=== PATIENT | female | born 1970 | race Hispanic/Latino ===

== ENCOUNTER 2016-11-08 08:06 | Emergency (ER) | payer MEDICAID ==
[2016-11-08 09:20] LABS: Basophils % (Auto) 0.3 % (0.0-1.8); Hematocrit 33.5 % (30.3-42.9); Hemoglobin 10.6 gm/dl (10.1-14.3); Mean Corpuscular HGB Conc 32 % (30-34); Mean Corpuscular Hemoglobin 26 pg (28-32); Mean Corpuscular Volume 83 fl (79-97); Platelet Count 435 K/mm3 (140-440); Red Blood Count 4.04 M/mm3 (3.65-5.03); Red Cell Distribution Width 19.6 % (13.2-15.2); White Blood Count 11.2 K/mm3 (4.5-11.0)
[2016-11-08 09:33] LABS: Anion Gap 18 mmol/L; Blood Urea Nitrogen 9 mg/dL (7-17); Calcium 9.4 mg/dL (8.4-10.2); Carbon Dioxide 27 mmol/L (22-30); Chloride 97.6 mmol/L (98-107); Glucose 122 mg/dL (65-100); Potassium 4.5 mmol/L (3.6-5.0); Sodium 138 mmol/L (137-145)
[2016-11-08] MEDS ORDERED: ZOFRAN IV ONE (11:07)
[2016-11-08] MEDS ORDERED: DILAUDID IV ONE (11:07)
[2016-11-08] MEDS ORDERED: NACL 0.9% 1000 ML 1,000 ML IV ONE (11:08)
--- NOTE | 2016-11-08 11:17 | Emergency Department Report ---
HPI - General Chief Complaint: Rectal Pain Time Seen by Provider: 11/08/16 11:07 - HPI HPI: 46-year-old female, she obtains most of her medical care at [facility] but present disorder [facility] this morning for severe rectal pain. She does a history of rectal cancer, patient does not remember who is her oncologist, she does not remember who did her rectal surgeries. She states she goes to primary care for Percocet but hasn't had time to go this past month. She describes her pain as sharp, 9 out of 10, without radiation without discharge from her rectal mass. ED Past Medical Hx - Past Medical History Previous Medical History?: Yes Hx of Cancer: Yes (Anal) - Social History Smoking Status: Current Every Day Smoker Substance Use Type: None ED Review of Systems ROS: Stated complaint: ABD PAIN/N/V Other details as noted in HPI Gastrointestinal: other (rectal pain) Physical Exam - Physical Exam Vital Signs: Vital Signs 11/08/16 08:36 Temperature 97.6 F Pulse Rate 73 Respiratory 18 Rate Blood Pressure 98/61 Blood Pressure 98/61 [Right] O2 Sat by Pulse 100 Oximetry Physical Exam: Physical Exam: - General Limitations: No Limitations General appearance: In distress - Head Head exam: Present: atraumatic, normocephalic - Eye Eye exam: Present: normal appearance - ENT ENT exam: Present: mucous membranes moist - Neck Neck exam: Present: normal inspection - Respiratory Respiratory exam: Present: normal lung sounds bilaterally. Absent: respiratory distress - Cardiovascular Cardiovascular Exam: Present: normal rhythm, tachycardia. Absent: systolic murmur, diastolic murmur, rubs, gallop - GI/Abdominal GI/Abdominal exam: Present: soft, normal bowel sounds Rectal exam done with nurse in room as veterinary assistant, showed extensive anal papilloma without drainage, not bleeding. - Extremities Exam Extremities exam: Present: normal inspection - Back Exam Back exam: Present: normal inspection - Neurological Exam Neurological exam: Present: alert, oriented X3, - Skin Skin exam: Present: warm, dry, intact, normal color. Absent: rash ED Course Vital Signs 11/08/16 08:36 Temperature 97.6 F Pulse Rate 73 Respiratory 18 Rate Blood Pressure 98/61 Blood Pressure 98/61 [Right] O2 Sat by Pulse 100 Oximetry - Reevaluation(s) Reevaluation #1: 09/02/17 12:51 Patient was given Dilaudid 1 mg IV, with Zofran 4 mg IV in ER for pain control. I believe that this is appropriate and adequate for her symptoms. Patient requesting Percocet prescription, due to patient's chronic pain status, we'll defer to primary care/oncologist for chronic pain control. ED Medical Decision Making - Lab Data Result diagrams: 11/08/16 09:04 11/08/16 09:04 Critical care attestation.: If time is entered above; I have spent that time in minutes in the direct care of this critically ill patient, excluding procedure time. ED Disposition Clinical Impression: Rectal pain, chronic Disposition: DC-01 TO HOME OR SELFCARE Is pt being admited?: No Does the pt Need Aspirin: No Condition: Stable Referrals: PRIMARY CARE, [Primary Care Provider] - 3-5 Days
[2016-11-08 12:38] VITALS: BP 118/64
== END 2016-11-08 13:47 | disposition home or self-care (01) ==
LOC: ED 08:06
DX: K62.89 Other specified diseases of anus and rectum (principal); C21.0 Malignant neoplasm of anus, unspecified; F17.200 Nicotine dependence, unspecified, uncomplicated; Z88.8 Allergy status to other drugs, medicaments and biological substances
CPT/HCPCS: 36415; 80048; 85025; 96361; 96374; 96375; 99284; J1170; J2405; J7030

== ENCOUNTER 2016-11-08 15:51 | Emergency (ER) | payer MEDICAID ==
[2016-11-08] MEDS ORDERED: ATIVAN IV ONE (22:38)
[2016-11-08] MEDS ORDERED: VITAMIN B-1 100 MG, FOLVITE 1 MG, INFUVITE 10 ML, MAGNESIUM SULFATE 2 GM in NACL 0.9% 1... IV ONE (22:38)
[2016-11-08] MEDS ORDERED: ZOFRAN IV ONE (22:38)
[2016-11-08] MEDS ORDERED: LOMOTIL PO ONE (22:38)
--- NOTE | 2016-11-09 00:06 | Emergency Department Report ---
HPI - General Chief Complaint: Medical Clearance Time Seen by Provider: 11/08/16 22:29 - [facility] HPI: [facility] The patient is a 46-year-old female presenting with chief complaint of benzodiazepine and methadone withdrawal. Patient was just seen in the emergency department seeking pain medication for her anal cancer. The patient was discharged after receiving pain medication in the ED and advised to follow- up with her primary physician for further pain management. The patient immediately turned back around and came back to the ED stating that she wishes to receive detox from methadone and benzodiazepines. Patient states she takes as well as Xanax which can and has not had any past 2 days. Patient states she has not had methadone since yesterday. The patient says she feels hot and cold , sweaty with tremors and nauseous. Patient missed diarrhea. Location: [see above] Duration: [see above] Quality: [see above] Severity: Moderate Modifying factors: [see above] Context: [see above] Mode of transportation: [not driving] ED Past Medical Hx - Past Medical History Additional medical history: anal cancer - Surgical History Past Surgical History?: No - Family History Family history: no significant - Social History Smoking Status: Current Every Day Smoker Substance Use Type: Alcohol (approximately 1 pint of alcohol daily) - Medications Home Medications: Home Medications Medication Instructions Recorded Confirmed Last Taken Type FLUoxetine [PROzac] 20 mg PO BID 11/08/16 11/08/16 Unknown History Gabapentin [Neurontin] 800 mg PO TID 11/08/16 11/08/16 Unknown History traMADol [Ultram] 50 mg PO Q6HR PRN #7 tablet 11/08/16 11/08/16 Unknown Rx ED Review of Systems ROS: Stated complaint: MEDICAL CLEARANCE Other details as noted in HPI Comment: All other systems reviewed and negative Constitutional: chills, diaphoresis. denies: fever Eyes: denies: eye pain, eye discharge, vision change ENT: denies: ear pain, throat pain Respiratory: denies: cough, shortness of breath, wheezing Cardiovascular: denies: chest pain, palpitations Endocrine: no symptoms reported Gastrointestinal: nausea, vomiting, diarrhea Genitourinary: denies: urgency, dysuria, discharge Musculoskeletal: denies: back pain, joint swelling, arthralgia Skin: denies: rash, lesions Neurological: denies: headache, weakness, paresthesias Psychiatric: denies: anxiety, depression Hematological/Lymphatic: denies: easy bleeding, easy bruising Physical Exam - Physical Exam Vital Signs: Vital Signs 11/08/16 16:03 Temperature 97.7 F Pulse Rate 93 H Respiratory 18 Rate Blood Pressure 115/75 O2 Sat by Pulse 97 Oximetry Physical Exam: GENERAL: The patient is well-developed well-nourished female lying on stretcher not appearing to be in acute distress. [] HEENT: Normocephalic. Atraumatic. Extraocular motions are intact. Patient has moist mucous membranes. NECK: Supple. Trachea midline CHEST/LUNGS: Clear to auscultation. There is no respiratory distress noted. HEART/CARDIOVASCULAR: Regular. There is no tachycardia. There is no gallop rub or murmur. ABDOMEN: Abdomen is soft, nontender. Patient has normal bowel sounds. There is no abdominal distention. SKIN: There is no rash. There is no edema. There is no diaphoresis. NEURO: The patient is awake, alert, and oriented. The patient is cooperative. The patient has normal speech MUSCULOSKELETAL:There is no evidence of acute injury. ED Course Vital Signs 11/08/16 16:03 Temperature 97.7 F Pulse Rate 93 H Respiratory 18 Rate Blood Pressure 115/75 O2 Sat by Pulse 97 Oximetry ED Medical Decision Making - Differential Diagnosis polysubstance abuse Critical care attestation.: If time is entered above; I have spent that time in minutes in the direct care of this critically ill patient, excluding procedure time. ED Disposition Clinical Impression: Polysubstance abuse Disposition: DC/TX-65 PSY HOSP/PSY UNIT Is pt being admited?: No Does the pt Need Aspirin: No Condition: Stable Referrals: PRIMARY CARE, [Primary Care Provider] - 3-5 Days Time of Disposition: 00:06 (awaiting MH dispo)
[2016-11-09] MEDS ORDERED: ZOFRAN ODT PO PRN (00:07)
[2016-11-09] MEDS ORDERED: LOMOTIL PO PRN (00:07)
[2016-11-09] MEDS ORDERED: NEURONTIN PO ONE (00:08)
[2016-11-09] MEDS: ATIVAN PO PRN ×2 (07:15→23:21)
[2016-11-09] MEDS: NEURONTIN PO SCH ×3 (09:18→20:58)
[2016-11-09] MEDS: PROzac PO SCH ×2 (10:15→22:14)
[2016-11-09] MEDS ORDERED: TYLENOL PO ONE (19:04)
[2016-11-10] MEDS: ATIVAN PO PRN ×2 (06:57→14:59)
[2016-11-10] MEDS: NEURONTIN PO SCH ×3 (08:56→19:56)
[2016-11-10] MEDS: PROzac PO SCH (10:08)
--- NOTE | 2016-11-10 15:40 | Consultation ---
History of Present Illness - Reason for Consult Consult date: 11/10/16 Reason for consult: Mental Health Evaluation Requesting physician: LIZ MCKEON - Chief Complaint Chief complaint: "What can I do" - History of Present Psychiatric Illness The patient is a 46-year-old female presenting with chief complaint of benzodiazepine and methadone withdrawal. Today patient is cooperative during the assessment. She stated that she would like to detox off benzos and methadone. She stated that she has a psychiatrist at [facility] that manage her methadone and outpatient psy services. She stated that she takes a total of 6 mg of Xanax a day. She denies SI/HI's, AVH's, and depression. She denies recreational drug and alcohol consumption (etoh). Medications and Allergies Allergies Allergy/AdvReac Type Severity Reaction Status Date / Time ketorolac tromethamine Allergy Itching Verified 11/08/16 22:51 [From Toradol] ziprasidone HCl [From Geodon] Allergy Unknown Verified 11/08/16 22:51 ziprasidone mesylate Allergy Unknown Verified 11/08/16 22:51 [From Geodon] Home Medications Medication Instructions Recorded Confirmed Last Taken Type FLUoxetine [PROzac] 20 mg PO BID 11/08/16 11/08/16 Unknown History Gabapentin [Neurontin] 800 mg PO TID 11/08/16 11/08/16 Unknown History traMADol [Ultram] 50 mg PO Q6HR PRN #7 tablet 11/08/16 11/08/16 Unknown Rx Active Meds: Active Medications Diphenoxylate HCl/Atropine (Lomotil) 2 tab PO QID PRN PRN Reason: Diarrhea Fluoxetine HCl (Prozac) 20 mg PO BID [facility] Last Admin: 11/10/16 10:08 Dose: 20 mg Gabapentin (Neurontin) 800 mg PO TID [facility] Last Admin: 11/10/16 14:59 Dose: 800 mg Lorazepam (Ativan) 1 mg PO Q8H PRN PRN Reason: Anxiety Last Admin: 11/10/16 14:59 Dose: 1 mg Ondansetron HCl (Zofran Odt) 8 mg PO Q8H PRN PRN Reason: Nausea Last Admin: 11/09/16 20:58 Dose: 8 mg Past psychiatric history - Past Medical History Past Medical History: other (Anal cancer) Past Surgical History: No surgical history - past Psychiatric treatment and history Psych: Depression psychiatric treatment history: Patient is seen by a psychiatrist for depression. She denies a fam psy hx. Mental Status Exam - Vital signs Last Vital Signs Temp 98.6 F 11/10/16 12:06 Pulse 89 11/10/16 12:06 Resp 20 11/10/16 12:06 BP 110/76 11/10/16 12:06 Pulse Ox 96 11/10/16 12:06 - Exam Narrative exam: ROS: (-) depression MSE: Appearance: calm, cooperative Behavior: regular eye contact Speech: regular rate and tone Mood: "miserable" Affect: congruent to mood Thought Process: linear Thought Content: denies SI/HI's and AVH's. Motor Activity: ambulatory Cognition: A/Ox 3 Insight: fair Judgment: fair Results All other labs normal. Assessment and Plan Assessment and plan: Impression: Historical Dx: Depression. 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 Today patient is cooperative during the assessment. Patient takes Xanax 6 mg PO and methadone daily. Recommendation/Plan: Start Xanax 1 mg PO TID for anxiety. Modified Prozac to 40 mg PO daily for depression. Patient plan to follow up with [facility] for her Methadone management and outpatient psy services once discharged.
[2016-11-10] MEDS ORDERED: XANAX PO SCH (20:00)
[2016-11-10 23:44] VITALS: BP 117/68
== END 2016-11-10 23:47 | disposition home or self-care (01) ==
LOC: EEVIPCON 15:51 → ED 15:51
DX: F19.10 Other psychoactive substance abuse, uncomplicated (principal); F17.200 Nicotine dependence, unspecified, uncomplicated; Z85.048 Personal history of other malignant neoplasm of rectum, rectosigmoid junction, and anus
CPT/HCPCS: 96365; 96366; 96375; 99284; J2060; J2405; J3411; J3475; J7030; Q0162